=== PATIENT | female | born 1980 | race Caucasian/White ===

== ENCOUNTER 2018-09-22 13:18 | Inpatient (IN) | payer OTHER ==
[~2018-09-22] VITALS: Ht 152.4 cm; Wt 75.3 kg
[~2018-09-22 13:18] MED LIST: PRENATAL CAPLE1 EACH PO
== END 2018-09-30 11:33 | disposition home or self-care (01) | DRG 194 ==
LOC: OB/GYN 13:18 → LDR 13:18 → OB/GYN 09-23 08:47
PROVIDERS: ADMIT Obstetrics & Gynecology
PROC: 3E0F7GC Introduction of Other Therapeutic Substance into Respiratory Tract, Via Natural or Artificial Opening (ICD-10-PCS; principal; 2018-09-22)
PROC: 4A033R1 Measurement of Arterial Saturation, Peripheral, Percutaneous Approach (ICD-10-PCS; 2018-09-22)
PROC: 8E0ZXY6 Isolation (ICD-10-PCS; 2018-09-22)
PROC: BY4FZZZ Ultrasonography of Third Trimester, Single Fetus (ICD-10-PCS; 2018-09-22)
PROC: 4A1HXCZ Monitoring of Products of Conception, Cardiac Rate, External Approach (ICD-10-PCS; 2018-09-22)
DX: J10.1 Influenza due to other identified influenza virus with other respiratory manifestations (principal); O47.03 False labor before 37 completed weeks of gestation, third trimester; B96.0 Mycoplasma pneumoniae [M. pneumoniae] as the cause of diseases classified elsewhere; Z34.83 Encounter for supervision of other normal pregnancy, third trimester; Z52.4 Kidney donor

== ENCOUNTER 2018-10-29 21:27 | Outpatient (CLI) | payer OTHER | END 2018-10-30 15:27 | disposition home or self-care (01) | LOC: OBS/DEL 21:27 | DX: O60.03 Preterm labor without delivery, third trimester (principal); Z34.83 Encounter for supervision of other normal pregnancy, third trimester ==

== ENCOUNTER 2018-11-28 09:04 | Inpatient (IN) | payer OTHER ==
[~2018-11-28] VITALS: Ht 152.4 cm; Wt 79.8 kg
== END 2018-11-30 15:20 | disposition home or self-care (01) | DRG 807 ==
LOC: SURG-SUITE 09:04 → LDR 09:04 → SURG-SUITE 20:05
PROVIDERS: ADMIT Obstetrics & Gynecology
PROC: 10E0XZZ Delivery of Products of Conception, External Approach (ICD-10-PCS; principal; 2018-11-28)
PROC: 4A1HXCZ Monitoring of Products of Conception, Cardiac Rate, External Approach (ICD-10-PCS; 2018-11-28)
PROC: 3E033VJ Introduction of Other Hormone into Peripheral Vein, Percutaneous Approach (ICD-10-PCS; 2018-11-28)
DX: O80 Encounter for full-term uncomplicated delivery (principal); Z37.0 Single live birth; Z3A.39 39 weeks gestation of pregnancy